=== PATIENT | female | born 1960 | race African-American/Black ===

== ENCOUNTER 2023-02-01 16:23 | Inpatient (IN) | payer SELFPAY ==
[2023-02-01] MEDS ORDERED: Morphine 4 MG/ML VIAL ONE (17:00)
[2023-02-01 17:22] LABS: #Basophils 0.1 thou/uL (0.0-0.2); #Eosinphils 0.2 thou/uL (0.0-0.7); #Monocytes 0.5 thou/uL (0.11-0.59); %Basophils 0.8 % (0.0-1.0); %Eosinophils 3.4 % (0.0-10.0); %Lymphocytes 26.9 % (21.0-51.0); %Monocytes 7.5 % (0.0-10.0); %Neutrophils 61.2 % (42.0-75.0); Hematocrit 41.9 % (36.0-47.0); Hemoglobin 13.8 g/dL (12.0-16.0); Mean Corpuscular HGB CONC 32.9 g/dL (32.0-36.0); Mean Corpuscular Hemoglobin 30.7 pg (27.0-31.0); Mean Corpuscular Volume 93.1 fl (78.0-98.0); Mean Platelet Volume 10.1 fL (7.4-10.4); Platelet Count 287 10x3/uL (130-400); RBC Distribution Width 13.2 % (11.5-14.5); White Blood Cell (WBC) Count 6.5 10x3/uL (4.8-10.8)
[2023-02-01 17:49] LABS: ALT (SGPT) 10 U/L (8-55); AST (SGOT) 9 U/L (5-34); Albumin 3.9 g/dL (3.4-4.8); Alkaline Phosphatase 148 U/L (40-110); Anion Gap 14 mmol/L (10-20); BUN (Urea Nitrogen) 13 mg/dL (9.8-20.1); Bilirubin, Total 0.5 mg/dL (0.2-1.2); Calc. Creatinine Clearance 0 mL/min (70-130); Calcium 9.3 mg/dL (7.8-10.44); Carbon Dioxide 17 mmol/L (23-31); Chloride 110 mmol/L (98-107); Estimated GFR 63; Globulin 3.3 g/dL (2.4-3.5); Glucose 197 mg/dL (80-115); Potassium 3.8 mmol/L (3.5-5.1); Protein, Total 7.2 g/dL (5.8-8.1); Sodium 137 mmol/L (136-145)
[2023-02-01 19:25] LABS: INR-International Normal Ratio 1.1; PTT 26.6 sec (22.9-36.1); Prothrombin Time 14.3 sec (12.0-14.7)
[2023-02-01] MEDS ORDERED: Midazolam HCl 2 mg/2 ml Vial ONE (19:55)
[2023-02-01] MEDS ORDERED: ePHEDrine Sulfate 50 MG/10 ML VIAL ONE (19:55)
[2023-02-01] MEDS ORDERED: Fentanyl 250 MCG/5 ML VIAL ONE (19:55)
[2023-02-01] MEDS ORDERED: PROPOFOL 20 ML ONE (19:55)
[2023-02-01] MEDS ORDERED: PHENYLEPHRINE-NS 100 MCG/ML 10 ML SYRINGE ONE (19:55)
[2023-02-01] MEDS ORDERED: Rocuronium Bromide 10 MG/ML (10ML VIAL) ONE ×2 (19:55→20:41)
[2023-02-01] MEDS ORDERED: Phenylephrine 40 MG/NS 250 ML 250 ML ONE (19:55)
[2023-02-01] MEDS ORDERED: Ondansetron PF 4 MG/2 ML Vial ONE ×2 (19:55→20:41)
[2023-02-01] MEDS ORDERED: Heparin 10,000 UNITS/ 10 ML VIAL ONE (19:55)
[2023-02-01] MEDS ORDERED: Lidocaine 2% PF 100 mg/5 ml Syringe ONE (19:56)
[2023-02-01] MEDS ORDERED: Heparin 25,000 units/D5W 500 ML ONE (20:03)
[2023-02-01] MEDS ORDERED: Protamine Sulfate 50 MG/5 ML VIAL ONE (20:10)
[2023-02-01] MEDS ORDERED: Heparin 5,000 UNITS/ML VIAL ONE (20:10)
[2023-02-01] MEDS ORDERED: EPINEPHrine 1 MG/ML VIAL ONE (20:10)
[2023-02-01] MEDS ORDERED: Bupivacaine PF 0.5% 30 ML VIAL ONE (20:11)
[2023-02-01] MEDS ORDERED: Ondansetron PF 4 MG/2 ML Vial IVP PRN ×2 (20:13→22:19)
[2023-02-01] MEDS ORDERED: Acetaminophen 325 MG TAB PO PRN ×2 (20:13→22:19)
[2023-02-01] MEDS ORDERED: Calcium Carbonate 500 MG ChewTAB PO PRN (20:13)
[2023-02-01] MEDS ORDERED: Ondansetron ODT 4 MG TAB PO PRN (20:13)
[2023-02-01] MEDS ORDERED: Heparin 10,000 UNITS/ 10 ML VIAL SLOW IVP SCH (20:30)
[2023-02-01] MEDS ORDERED: Heparin 25,000 units/D5W 500 ML IVPB SCH (20:30)
[2023-02-01] MEDS ORDERED: PROPOFOL 200 MG/20 ML VIAL ONE (20:41)
[2023-02-01] MEDS ORDERED: Lidocaine 1% PF 5 ML VIAL ONE (20:41)
[2023-02-01] MEDS ORDERED: Dexamethasone 20 MG/5 ML VIAL ONE (20:41)
[2023-02-01 20:45] LABS: Hematocrit 43.9 % (36.0-47.0); Hemoglobin 14.6 g/dL (12.0-16.0); Platelet Count 276 10x3/uL (130-400)
[2023-02-01 21:10] LABS: Cardiac Risk 5.6 (Less than 4.5); Cholesterol 211 mg/dl (< 200 Desired); HDL Cholesterol 38 mg/dL (>60 Neg Risk); LDL Cholesterol, Calculated 137 mg/dL; Triglycerides 181 mg/dL (Less than 150)
[2023-02-01 21:12] LABS: Troponin I Less than 0.010 ng/mL (< 0.028)
[2023-02-01 21:15] LABS: Hemoglobin A1c 6.2 % (4.0-6.0)
[2023-02-01] MEDS ORDERED: SUGAMMADEX SODIUM 200 MG/2 ML VIAL ONE (21:55)
[2023-02-01] MEDS ORDERED: Labetalol HCl 100 MG/20 ML VIAL ONE ×2 (22:03→22:12)
[2023-02-01] MEDS ORDERED: Ipratropium/Albuterol 3 ML NEB NEB PRN (22:19)
[2023-02-01] MEDS ORDERED: traMADol HCl 50 MG TAB PO PRN (22:19)
[2023-02-01] MEDS ORDERED: Promethazine HCl 25 MG/ML VIAL IM PRN (22:19)
[2023-02-01] MEDS ORDERED: fentaNYL 50 mcg/mL 1 mL Vial ONE ×3 (22:21→22:55)
[2023-02-02] MEDS ORDERED: Promethazine HCl 25 MG SUPP PR PRN
[2023-02-02 00:19] VITALS: BMI 29.5
[2023-02-02] MEDS: CEFAZOLIN 2 GM in Sodium Chloride 0.9% 100 ML IVPB SCH ×3 (00:41→15:38)
[2023-02-02] MEDS: Senokot S 8.6-50 MG TAB PO SCH ×3 (00:41→20:21)
[2023-02-02 03:09] LABS: #Monocytes 0.1 thou/uL (0.11-0.59); #Neutrophils 5.6 thou/uL (1.40-6.50); %Basophils 0.3 % (0.0-1.0); %Lymphocytes 15.2 % (21.0-51.0); %Neutrophils 82.2 % (42.0-75.0); Hematocrit 41.3 % (36.0-47.0); Hemoglobin 13.7 g/dL (12.0-16.0); Mean Corpuscular HGB CONC 33.2 g/dL (32.0-36.0); Mean Corpuscular Hemoglobin 30.7 pg (27.0-31.0); Mean Corpuscular Volume 92.6 fl (78.0-98.0); Mean Platelet Volume 9.6 fL (7.4-10.4); Platelet Count 266 10x3/uL (130-400); RBC Distribution Width 13.2 % (11.5-14.5); Red Blood Cell (RBC) Count 4.46 mill/uL (4.20-5.40); White Blood Cell (WBC) Count 6.8 10x3/uL (4.8-10.8)
[2023-02-02 03:44] LABS: PTT 204.4 sec (22.9-36.1)
[2023-02-02 03:59] LABS: Anion Gap 18 mmol/L (10-20); BUN (Urea Nitrogen) 9 mg/dL (9.8-20.1); Calc. Creatinine Clearance 118 mL/min (70-130); Calcium 9.3 mg/dL (7.8-10.44); Carbon Dioxide 18 mmol/L (23-31); Chloride 107 mmol/L (98-107); Estimated GFR 91; Glucose 172 mg/dL (80-115); Potassium 3.7 mmol/L (3.5-5.1); Sodium 139 mmol/L (136-145)
[2023-02-02] MEDS: Morphine 4 MG/ML VIAL SLOW IVP PRN ×2 (04:59→23:22)
[2023-02-02] MEDS ORDERED: Dextrose 50% Abboject 50 ML SYRINGE SLOW IVP PRN (06:31)
[2023-02-02] MEDS ORDERED: Glucagon 1 MG/ML KIT IM PRN (06:31)
[2023-02-02] MEDS ORDERED: HumaLOG 300 UNITS/3 ML VIAL SC PRN ×2 (06:31)
[2023-02-02] MEDS ORDERED: Dextrose 5% in Water 1,000 ML IV PRN (06:31)
[2023-02-02] MEDS ORDERED: Losartan 25 MG TAB PO SCH (09:00)
[2023-02-02] MEDS: Bisacodyl 5 MG TAB PO SCH (10:07)
[2023-02-02] MEDS: dilTIAZem CD 240 MG CAP PO SCH (10:08)
[2023-02-02] MEDS: Ketorolac Tromethamine 30 MG/ML VIAL IVP PRN ×3 (10:11→23:19)
[2023-02-02] MEDS: Losartan 25 MG TAB PO SCH (10:14)
[2023-02-02] MEDS: Aspirin Chewable 81 MG TAB PO SCH (10:14)
[2023-02-02] MEDS: traMADol HCl 50 MG TAB PO PRN ×2 (17:25→23:17)
[2023-02-02] MEDS: hydrALAZINE 20 MG/ML VIAL SLOW IVP PRN (20:21)
[2023-02-02] MEDS: Atorvastatin Calcium 20 MG TAB PO SCH (20:21)
[2023-02-03] MEDS: Ketorolac Tromethamine 30 MG/ML VIAL IVP PRN (05:19)
[2023-02-03] MEDS: hydrALAZINE 20 MG/ML VIAL SLOW IVP PRN ×2 (05:19→22:34)
[2023-02-03] MEDS: traMADol HCl 50 MG TAB PO PRN ×2 (05:20→11:45)
[2023-02-03 05:40] LABS: #Monocytes 0.9 thou/uL (0.11-0.59); #Neutrophils 9.6 thou/uL (1.40-6.50); %Basophils 0.3 % (0.0-1.0); %Eosinophils 0.2 % (0.0-10.0); %Lymphocytes 17.5 % (21.0-51.0); %Monocytes 7.3 % (0.0-10.0); %Neutrophils 74.4 % (42.0-75.0); Hematocrit 43.2 % (36.0-47.0); Hemoglobin 14.1 g/dL (12.0-16.0); Mean Corpuscular HGB CONC 32.6 g/dL (32.0-36.0); Mean Corpuscular Hemoglobin 30.2 pg (27.0-31.0); Mean Corpuscular Volume 92.5 fl (78.0-98.0); Mean Platelet Volume 9.9 fL (7.4-10.4); Platelet Count 288 10x3/uL (130-400); RBC Distribution Width 13.5 % (11.5-14.5); Red Blood Cell (RBC) Count 4.67 mill/uL (4.20-5.40); White Blood Cell (WBC) Count 12.9 10x3/uL (4.8-10.8)
[2023-02-03 06:05] LABS: Anion Gap 15 mmol/L (10-20); BUN (Urea Nitrogen) 17 mg/dL (9.8-20.1); Calc. Creatinine Clearance 115 mL/min (70-130); Calcium 9.6 mg/dL (7.8-10.44); Carbon Dioxide 24 mmol/L (23-31); Chloride 105 mmol/L (98-107); Estimated GFR 88; Glucose 119 mg/dL (80-115); Sodium 140 mmol/L (136-145)
[2023-02-03] MEDS: dilTIAZem CD 240 MG CAP PO SCH (09:04)
[2023-02-03] MEDS: Aspirin Chewable 81 MG TAB PO SCH (09:05)
[2023-02-03] MEDS: Senokot S 8.6-50 MG TAB PO SCH ×2 (09:05→20:50)
[2023-02-03] MEDS: Bisacodyl 5 MG TAB PO SCH (09:05)
[2023-02-03] MEDS: Apixaban 5 MG TAB PO SCH ×2 (09:06→20:50)
[2023-02-03] MEDS: Losartan 25 MG TAB PO SCH (09:06)
[2023-02-03] MEDS: Atorvastatin Calcium 20 MG TAB PO SCH (20:50)
[2023-02-03 20:59] LABS: Hematocrit 45.1 % (36.0-47.0); Hemoglobin 14.4 g/dL (12.0-16.0); Platelet Count 317 10x3/uL (130-400)
[2023-02-04] MEDS: hydrALAZINE 20 MG/ML VIAL SLOW IVP PRN (04:32)
[2023-02-04 05:25] LABS: #Basophils 0.1 thou/uL (0.0-0.2); #Eosinphils 0.1 thou/uL (0.0-0.7); #Monocytes 0.7 thou/uL (0.11-0.59); #Neutrophils 4.8 thou/uL (1.40-6.50); %Basophils 0.6 % (0.0-1.0); %Eosinophils 1.7 % (0.0-10.0); %Monocytes 8.6 % (0.0-10.0); Hematocrit 43.9 % (36.0-47.0); Hemoglobin 14.2 g/dL (12.0-16.0); Mean Corpuscular HGB CONC 32.3 g/dL (32.0-36.0); Mean Corpuscular Hemoglobin 30.1 pg (27.0-31.0); Platelet Count 305 10x3/uL (130-400); RBC Distribution Width 13.5 % (11.5-14.5); Red Blood Cell (RBC) Count 4.72 mill/uL (4.20-5.40); White Blood Cell (WBC) Count 8.3 10x3/uL (4.8-10.8)
[2023-02-04 05:55] LABS: Anion Gap 18 mmol/L (10-20); BUN (Urea Nitrogen) 19 mg/dL (9.8-20.1); Calc. Creatinine Clearance 120 mL/min (70-130); Calcium 9.5 mg/dL (7.8-10.44); Carbon Dioxide 18 mmol/L (23-31); Chloride 104 mmol/L (98-107); Estimated GFR 92; Glucose 119 mg/dL (80-115); Potassium 3.8 mmol/L (3.5-5.1); Sodium 136 mmol/L (136-145)
[2023-02-04] MEDS ORDERED: Atorvastatin Calcium 20 MG TAB PO SCH (07:44)
[2023-02-04] MEDS ORDERED: Losartan 25 MG TAB PO SCH (09:00)
[2023-02-04] MEDS: traMADol HCl 50 MG TAB PO PRN (09:27)
[2023-02-04] MEDS: dilTIAZem CD 240 MG CAP PO SCH (09:29)
[2023-02-04] MEDS: Senokot S 8.6-50 MG TAB PO SCH (09:30)
[2023-02-04] MEDS: Aspirin Chewable 81 MG TAB PO SCH (09:30)
[2023-02-04] MEDS: Bisacodyl 5 MG TAB PO SCH (09:30)
[2023-02-04] MEDS: Apixaban 5 MG TAB PO SCH (09:30)
[2023-02-04 15:51] VITALS: BP 128/90; TEMP 97.8
[2023-02-04] MEDS ORDERED: Atorvastatin Calcium 40 MG TAB PO SCH (21:00)
[2023-02-05] MEDS ORDERED: FLU VACC QS2023-24(6MOS UP)/PF 60 MCG/0.5 ML SYRINGE IM ONE (09:00)
== END 2023-02-04 16:15 | disposition home or self-care (01) | DRG 253 ==
LOC: ERS 16:23 → SDC/OP 20:28 → SJJU 02-02 00:05
PROVIDERS: ADMIT Student in an Organized Health Care Education/Training Program; ATTEND Student in an Organized Health Care Education/Training Program
PROC: 04CL0ZZ Extirpation of Matter from Left Femoral Artery, Open Approach (ICD-10-PCS; principal; 2023-02-02)
PROC: 3E033XZ Introduction of Vasopressor into Peripheral Vein, Percutaneous Approach (ICD-10-PCS; 2023-02-02)
DX: I70.222 Atherosclerosis of native arteries of extremities with rest pain, left leg (principal); I74.3 Embolism and thrombosis of arteries of the lower extremities; I10 Essential (primary) hypertension; I48.91 Unspecified atrial fibrillation; E78.5 Hyperlipidemia, unspecified; K59.00 Constipation, unspecified; F17.210 Nicotine dependence, cigarettes, uncomplicated; E78.2 Mixed hyperlipidemia; R73.03 Prediabetes; Z88.0 Allergy status to penicillin; Z98.51 Tubal ligation status; Z90.89 Acquired absence of other organs; Z82.49 Family history of ischemic heart disease and other diseases of the circulatory system
CPT/HCPCS: 36415; 36416; 75635; 80048; 80053; 80061; 83036; 83605; 84484; 85025; 85610; 85730; 86850; 86900; 86901; 93005; 93923; J0171; J0360; J1100; J1644; J1815; J1885; J2001; J2250; J2270; J2405; J2704; J2720; J3010; J3490; Q0162; S0020

== ENCOUNTER 2023-03-25 19:09 | Inpatient (IN) | payer SELFPAY ==
[2023-03-25] MEDS ORDERED: dilTIAZem 125 MG/25 ML SDV ONE (19:42)
[2023-03-25 19:53] LABS: Hemoglobin 12.6 g/dL (12.0-16.0); Manual Diff?? YES; Mean Corpuscular HGB CONC 32.3 g/dL (32.0-36.0); Mean Corpuscular Hemoglobin 30.5 pg (27.0-31.0); Mean Corpuscular Volume 94.4 fl (78.0-98.0); Mean Platelet Volume 10.9 fL (7.4-10.4); Platelet Count 244 10x3/uL (130-400); Red Blood Cell (RBC) Count 4.13 mill/uL (4.20-5.40); White Blood Cell (WBC) Count 5.2 10x3/uL (4.8-10.8)
[2023-03-25 19:57] LABS: Delete Auto Diff?? YES
[2023-03-25] MEDS ORDERED: Metoprolol Tartrate 5 MG (5 mL) VIAL ONE ×2 (20:11→22:43)
[2023-03-25 20:16] LABS: ALT (SGPT) 12 U/L (8-55); AST (SGOT) 14 U/L (5-34); Alkaline Phosphatase 117 U/L (40-110); Anion Gap 14 mmol/L (10-20); BUN (Urea Nitrogen) 11 mg/dL (9.8-20.1); Bilirubin, Total 0.9 mg/dL (0.2-1.2); Calc. Creatinine Clearance 0 mL/min (70-130); Calcium 8.8 mg/dL (7.8-10.44); Carbon Dioxide 19 mmol/L (23-31); Chloride 110 mmol/L (98-107); Estimated GFR 80; Globulin 3.2 g/dL (2.4-3.5); Glucose 114 mg/dL (80-115); Potassium 3.6 mmol/L (3.5-5.1); Protein, Total 7.2 g/dL (5.8-8.1); Sodium 139 mmol/L (136-145)
[2023-03-25 20:29] LABS: Troponin I 0.023 ng/mL (< 0.028)
[2023-03-25 20:35] LABS: CellaVision Operator ID LAB.MJL; Eosinophils 4 % (0-10); Large Platelets 3.9 % (0-5); Lymphocytes 44 % (21-51); Monocytes 9 % (0-10); Neutrophil 41 % (42-75); Ovalocytes SLIGHT = 2-5 cells HPF (0-1); Platelet Adequacy Comment Platelets Normal; Polychromasia SLIGHT = 2-3 cells HPF (0-2); Total Cell Count 102
[2023-03-25] MEDS ORDERED: Furosemide 40 MG (4 mL) VIAL ONE (20:40)
[2023-03-25] MEDS ORDERED: Potassium Chloride 20 MEQ TAB ONE (22:06)
[2023-03-25 22:18] LABS: Magnesium 1.7 mg/dL (1.6-2.6)
[2023-03-25 23:37] LABS: Troponin I Less than 0.010 ng/mL (< 0.028)
[2023-03-26 03:01] LABS: Troponin I Less than 0.010 ng/mL (< 0.028)
[2023-03-26] MEDS ORDERED: Ondansetron PF 4 MG/2 ML Vial IVP PRN (03:53)
[2023-03-26] MEDS ORDERED: Acetaminophen 325 MG TAB PO PRN (03:53)
[2023-03-26] MEDS ORDERED: dilTIAZem 125 MG in Sodium Chloride 0.9% 100 ML IVPB SCH (04:00)
[2023-03-26 05:18] LABS: Hematocrit 38.4 % (36.0-47.0); Hemoglobin 12.6 g/dL (12.0-16.0); Manual Diff?? YES; Mean Corpuscular HGB CONC 32.8 g/dL (32.0-36.0); Mean Corpuscular Hemoglobin 30.9 pg (27.0-31.0); Mean Corpuscular Volume 94.1 fl (78.0-98.0); Mean Platelet Volume 10.8 fL (7.4-10.4); Platelet Count 225 10x3/uL (130-400); RBC Distribution Width 14.2 % (11.5-14.5); Red Blood Cell (RBC) Count 4.08 mill/uL (4.20-5.40); White Blood Cell (WBC) Count 5.2 10x3/uL (4.8-10.8)
[2023-03-26] MEDS: Furosemide 20 MG (2 mL) VIAL SLOW IVP SCH ×2 (05:40→17:33)
[2023-03-26 05:46] LABS: Anion Gap 14 mmol/L (10-20); BUN (Urea Nitrogen) 9 mg/dL (9.8-20.1); Calc. Creatinine Clearance 112 mL/min (70-130); Calcium 8.8 mg/dL (7.8-10.44); Carbon Dioxide 21 mmol/L (23-31); Chloride 108 mmol/L (98-107); Estimated GFR 90; Glucose 114 mg/dL (80-115); Magnesium 1.8 mg/dL (1.6-2.6); Potassium 3.5 mmol/L (3.5-5.1); Sodium 139 mmol/L (136-145)
[2023-03-26 06:06] LABS: Delete Auto Diff?? YES
[2023-03-26 07:08] LABS: CellaVision Operator ID LAB.NR; Eosinophils 8 % (0-10); Hypochromia SLIGHT = 6-15 cells HPF (0-5); Large Platelets 10.7 % (0-5); Lymphocytes 42 % (21-51); Macrocytosis SLIGHT = 6-15 cells HPF (0-5); Monocytes 6 % (0-10); Neutrophil 44 % (42-75); Platelet Adequacy Comment Platelets Normal; Polychromasia SLIGHT = 2-3 cells HPF (0-2); Smudge Cells 6.8 %; Total Cell Count 103
[2023-03-26] MEDS: Apixaban 5 MG TAB PO SCH ×2 (10:01→20:24)
[2023-03-26] MEDS: dilTIAZem CD 240 MG CAP PO SCH (10:01)
[2023-03-26] MEDS: Senokot S 8.6-50 MG TAB PO SCH ×2 (10:01→20:25)
[2023-03-26] MEDS: Losartan 25 MG TAB PO SCH (10:02)
[2023-03-26] MEDS: Atorvastatin Calcium 40 MG TAB PO SCH (20:24)
[2023-03-27] MEDS: Furosemide 20 MG (2 mL) VIAL SLOW IVP SCH ×2 (04:57→13:52)
[2023-03-27 06:39] LABS: Hematocrit 44.5 % (36.0-47.0); Hemoglobin 14.3 g/dL (12.0-16.0); Manual Diff?? YES; Mean Corpuscular HGB CONC 32.1 g/dL (32.0-36.0); Mean Corpuscular Hemoglobin 30.2 pg (27.0-31.0); Mean Corpuscular Volume 94.1 fl (78.0-98.0); Mean Platelet Volume 11.2 fL (7.4-10.4); Platelet Count 264 10x3/uL (130-400); Red Blood Cell (RBC) Count 4.73 mill/uL (4.20-5.40); White Blood Cell (WBC) Count 5.3 10x3/uL (4.8-10.8)
[2023-03-27 06:45] LABS: Delete Auto Diff?? YES
[2023-03-27 06:51] LABS: Anion Gap 16 mmol/L (10-20); BUN (Urea Nitrogen) 14 mg/dL (9.8-20.1); Calc. Creatinine Clearance 91 mL/min (70-130); Calcium 9.4 mg/dL (7.8-10.44); Carbon Dioxide 22 mmol/L (23-31); Chloride 106 mmol/L (98-107); Estimated GFR 72; Glucose 94 mg/dL (80-115); Potassium 3.4 mmol/L (3.5-5.1); Sodium 141 mmol/L (136-145)
[2023-03-27 07:18] LABS: Anisocytosis SLIGHT = 6-15 cells HPF (0-5); Burr Cells SLIGHT = 2-5 cells HPF (0-1); CellaVision Operator ID LAB.NR; Eosinophils 6 % (0-10); Lymphocytes 49 % (21-51); Macrocytosis SLIGHT = 6-15 cells HPF (0-5); Monocytes 4 % (0-10); Neutrophil 30 % (42-75); Platelet Adequacy Comment Platelets Normal; Polychromasia SLIGHT = 2-3 cells HPF (0-2); Reactive Lymphocytes 7 % (0-10); Total Cell Count 101
[2023-03-27] MEDS: Apixaban 5 MG TAB PO SCH ×2 (08:19→19:46)
[2023-03-27] MEDS: Senokot S 8.6-50 MG TAB PO SCH ×2 (08:19→19:46)
[2023-03-27] MEDS: dilTIAZem CD 240 MG CAP PO SCH (08:19)
[2023-03-27] MEDS: Losartan 25 MG TAB PO SCH (08:19)
[2023-03-27 17:44] LABS: #Basophils 0.1 thou/uL (0.0-0.2); #Eosinphils 0.3 thou/uL (0.0-0.7); #Monocytes 0.4 thou/uL (0.11-0.59); #Neutrophils 2.2 thou/uL (1.40-6.50); %Basophils 1.2 % (0.0-1.0); %Eosinophils 5.7 % (0.0-10.0); %Lymphocytes 40.2 % (21.0-51.0); %Monocytes 8.5 % (0.0-10.0); %Neutrophils 44.2 % (42.0-75.0); Hematocrit 43.6 % (36.0-47.0); Mean Corpuscular HGB CONC 32.1 g/dL (32.0-36.0); Mean Corpuscular Hemoglobin 30.4 pg (27.0-31.0); Mean Corpuscular Volume 94.6 fl (78.0-98.0); Mean Platelet Volume 10.7 fL (7.4-10.4); Platelet Count 250 10x3/uL (130-400); Red Blood Cell (RBC) Count 4.61 mill/uL (4.20-5.40); White Blood Cell (WBC) Count 5.1 10x3/uL (4.8-10.8)
[2023-03-27] MEDS: traMADol HCl 50 MG TAB PO PRN (18:02)
[2023-03-27 18:12] LABS: ALT (SGPT) 14 U/L (8-55); AST (SGOT) 16 U/L (5-34); Albumin 4.1 g/dL (3.4-4.8); Alkaline Phosphatase 124 U/L (40-110); Anion Gap 18 mmol/L (10-20); BUN (Urea Nitrogen) 20 mg/dL (9.8-20.1); Bilirubin, Total 0.8 mg/dL (0.2-1.2); CK (CPK) 36 U/L (29-168); Calc. Creatinine Clearance 75 mL/min (70-130); Calcium 9.5 mg/dL (7.8-10.44); Carbon Dioxide 19 mmol/L (23-31); Chloride 103 mmol/L (98-107); Estimated GFR 57; Globulin 3.5 g/dL (2.4-3.5); Glucose 105 mg/dL (80-115); Magnesium 1.8 mg/dL (1.6-2.6); Potassium 3.9 mmol/L (3.5-5.1); Protein, Total 7.6 g/dL (5.8-8.1); Sodium 136 mmol/L (136-145)
[2023-03-27] MEDS: Atorvastatin Calcium 40 MG TAB PO SCH (19:46)
[2023-03-28 05:35] LABS: Hematocrit 42.9 % (36.0-47.0); Hemoglobin 13.6 g/dL (12.0-16.0); Manual Diff?? YES; Mean Corpuscular HGB CONC 31.7 g/dL (32.0-36.0); Mean Corpuscular Hemoglobin 29.6 pg (27.0-31.0); Mean Corpuscular Volume 93.5 fl (78.0-98.0); Mean Platelet Volume 11.1 fL (7.4-10.4); Platelet Count 249 10x3/uL (130-400); RBC Distribution Width 13.9 % (11.5-14.5); Red Blood Cell (RBC) Count 4.59 mill/uL (4.20-5.40); White Blood Cell (WBC) Count 4.2 10x3/uL (4.8-10.8)
[2023-03-28] MEDS: Furosemide 20 MG (2 mL) VIAL SLOW IVP SCH (05:38)
[2023-03-28 05:39] LABS: Delete Auto Diff?? YES
[2023-03-28 05:59] LABS: Anion Gap 17 mmol/L (10-20); BUN (Urea Nitrogen) 20 mg/dL (9.8-20.1); Calc. Creatinine Clearance 98 mL/min (70-130); Calcium 9.2 mg/dL (7.8-10.44); Carbon Dioxide 21 mmol/L (23-31); Chloride 106 mmol/L (98-107); Estimated GFR 79; Glucose 128 mg/dL (80-115); Magnesium 1.9 mg/dL (1.6-2.6); Potassium 3.5 mmol/L (3.5-5.1); Sodium 140 mmol/L (136-145)
[2023-03-28 06:04] LABS: CellaVision Operator ID LAB.CLH1; Eosinophils 8 % (0-10); Lymphocytes 39 % (21-51); Monocytes 4 % (0-10); Neutrophil 42 % (42-75); Nucleated RBC (Manual Ct) 1 % (0); Platelet Adequacy Comment Platelets Normal; Reactive Lymphocytes 3 % (0-10); Total Cell Count 100
[2023-03-28] MEDS ORDERED: Potassium Chloride 20 MEQ TAB PO SCH (08:00)
[2023-03-28] MEDS ORDERED: Magnesium 2 GM/50 ML(in water) 2 GM in Premix 1 BAG IVPB SCH (08:00)
[2023-03-28] MEDS: Apixaban 5 MG TAB PO SCH ×2 (08:14→21:20)
[2023-03-28] MEDS: dilTIAZem CD 240 MG CAP PO SCH (08:14)
[2023-03-28] MEDS: Senokot S 8.6-50 MG TAB PO SCH ×2 (08:15→21:20)
[2023-03-28] MEDS: Losartan 25 MG TAB PO SCH (08:15)
[2023-03-28] MEDS: Potassium Chloride 20 MEQ TAB PO SCH ×2 (11:08→16:47)
[2023-03-28] MEDS: Atorvastatin Calcium 40 MG TAB PO SCH (21:19)
[2023-03-28] MEDS: traMADol HCl 50 MG TAB PO PRN (21:19)
[2023-03-29 06:16] LABS: #Basophils 0.1 thou/uL (0.0-0.2); #Eosinphils 0.4 thou/uL (0.0-0.7); #Monocytes 0.6 thou/uL (0.11-0.59); #Neutrophils 1.8 thou/uL (1.40-6.50); %Basophils 1.2 % (0.0-1.0); %Eosinophils 6.4 % (0.0-10.0); %Lymphocytes 50.9 % (21.0-51.0); %Monocytes 10.8 % (0.0-10.0); %Neutrophils 30.5 % (42.0-75.0); Hematocrit 43.9 % (36.0-47.0); Hemoglobin 13.8 g/dL (12.0-16.0); Mean Corpuscular HGB CONC 31.4 g/dL (32.0-36.0); Mean Corpuscular Hemoglobin 30.1 pg (27.0-31.0); Mean Corpuscular Volume 95.6 fl (78.0-98.0); Mean Platelet Volume 10.7 fL (7.4-10.4); Platelet Count 262 10x3/uL (130-400); RBC Distribution Width 14.1 % (11.5-14.5); Red Blood Cell (RBC) Count 4.59 mill/uL (4.20-5.40)
[2023-03-29 06:53] LABS: Anion Gap 13 mmol/L (10-20); BUN (Urea Nitrogen) 28 mg/dL (9.8-20.1); Calc. Creatinine Clearance 76 mL/min (70-130); Calcium 9.4 mg/dL (7.8-10.44); Carbon Dioxide 22 mmol/L (23-31); Chloride 105 mmol/L (98-107); Estimated GFR 59; Glucose 102 mg/dL (80-115); Magnesium 4.8 mg/dL (1.6-2.6); Potassium 4.4 mmol/L (3.5-5.1); Sodium 136 mmol/L (136-145)
[2023-03-29] MEDS ORDERED: Potassium Chloride 20 MEQ TAB PO SCH (08:00)
[2023-03-29] MEDS ORDERED: FLU VACC QS2023-24(6MOS UP)/PF 60 MCG/0.5 ML SYRINGE IM ONE (09:00)
[2023-03-29] MEDS: Apixaban 5 MG TAB PO SCH ×2 (09:37→21:09)
[2023-03-29] MEDS: Senokot S 8.6-50 MG TAB PO SCH ×2 (09:37→21:10)
[2023-03-29] MEDS: dilTIAZem CD 240 MG CAP PO SCH (09:38)
[2023-03-29] MEDS: Losartan 25 MG TAB PO SCH (09:38)
[2023-03-29] MEDS: Furosemide 40 MG TAB PO SCH (09:39)
[2023-03-29] MEDS: Atorvastatin Calcium 40 MG TAB PO SCH (21:10)
[2023-03-29] MEDS: Famotidine 20 MG TAB PO SCH (21:10)
[2023-03-30 06:35] LABS: #Basophils 0.1 thou/uL (0.0-0.2); #Eosinphils 0.3 thou/uL (0.0-0.7); #Monocytes 0.4 thou/uL (0.11-0.59); %Basophils 1.7 % (0.0-1.0); %Eosinophils 7.9 % (0.0-10.0); %Lymphocytes 55.6 % (21.0-51.0); %Monocytes 10.4 % (0.0-10.0); %Neutrophils 24.2 % (42.0-75.0); Hematocrit 44.9 % (36.0-47.0); Hemoglobin 14.5 g/dL (12.0-16.0); Mean Corpuscular HGB CONC 32.3 g/dL (32.0-36.0); Mean Corpuscular Hemoglobin 30.3 pg (27.0-31.0); Mean Corpuscular Volume 93.9 fl (78.0-98.0); Mean Platelet Volume 10.5 fL (7.4-10.4); Platelet Count 266 10x3/uL (130-400); RBC Distribution Width 13.5 % (11.5-14.5); Red Blood Cell (RBC) Count 4.78 mill/uL (4.20-5.40)
[2023-03-30 07:06] LABS: Anion Gap 12 mmol/L (10-20); BUN (Urea Nitrogen) 24 mg/dL (9.8-20.1); Calc. Creatinine Clearance 103 mL/min (70-130); Calcium 9.5 mg/dL (7.8-10.44); Carbon Dioxide 21 mmol/L (23-31); Chloride 105 mmol/L (98-107); Estimated GFR 86; Glucose 97 mg/dL (80-115); Sodium 134 mmol/L (136-145)
[2023-03-30] MEDS: Furosemide 40 MG TAB PO SCH (08:44)
[2023-03-30] MEDS: dilTIAZem CD 240 MG CAP PO SCH (08:45)
[2023-03-30] MEDS: Apixaban 5 MG TAB PO SCH ×2 (08:45→21:04)
[2023-03-30] MEDS: Famotidine 20 MG TAB PO SCH ×2 (08:45→21:04)
[2023-03-30] MEDS: Losartan 25 MG TAB PO SCH (08:45)
[2023-03-30] MEDS: Senokot S 8.6-50 MG TAB PO SCH ×2 (08:46→21:04)
[2023-03-30] MEDS: Atorvastatin Calcium 40 MG TAB PO SCH (21:04)
[2023-03-30] MEDS: traMADol HCl 50 MG TAB PO PRN (21:12)
[2023-03-31 04:42] LABS: Hematocrit 44.8 % (36.0-47.0); Hemoglobin 14.7 g/dL (12.0-16.0); Manual Diff?? YES; Mean Corpuscular HGB CONC 32.8 g/dL (32.0-36.0); Mean Corpuscular Hemoglobin 31.1 pg (27.0-31.0); Mean Corpuscular Volume 94.7 fl (78.0-98.0); Mean Platelet Volume 10.8 fL (7.4-10.4); Platelet Count 292 10x3/uL (130-400); RBC Distribution Width 13.3 % (11.5-14.5); Red Blood Cell (RBC) Count 4.73 mill/uL (4.20-5.40); White Blood Cell (WBC) Count 4.8 10x3/uL (4.8-10.8)
[2023-03-31 05:00] LABS: Delete Auto Diff?? YES
[2023-03-31 05:07] VITALS: BMI 27.5
[2023-03-31 05:07] LABS: Anion Gap 15 mmol/L (10-20); BUN (Urea Nitrogen) 31 mg/dL (9.8-20.1); Calc. Creatinine Clearance 85 mL/min (70-130); Calcium 9.2 mg/dL (7.8-10.44); Carbon Dioxide 18 mmol/L (23-31); Chloride 107 mmol/L (98-107); Estimated GFR 67; Glucose 93 mg/dL (80-115); Sodium 136 mmol/L (136-145)
[2023-03-31 05:24] LABS: CellaVision Operator ID LAB.CLH1; Eosinophils 3 % (0-10); Hypochromia SLIGHT = 6-15 cells HPF (0-5); Large Platelets 10.1 % (0-5); Lymphocytes 42 % (21-51); Monocytes 19 % (0-10); Neutrophil 31 % (42-75); Platelet Adequacy Comment Platelets Normal; Reactive Lymphocytes 3 % (0-10); Total Cell Count 99
[2023-03-31] MEDS ORDERED: Regadenoson 0.4 MG/5 ML SYRINGE ONE (10:07)
[2023-03-31] MEDS: Apixaban 5 MG TAB PO SCH (12:15)
[2023-03-31] MEDS: Furosemide 40 MG TAB PO SCH (12:15)
[2023-03-31] MEDS: Losartan 25 MG TAB PO SCH (12:15)
[2023-03-31] MEDS: Senokot S 8.6-50 MG TAB PO SCH (12:16)
[2023-03-31] MEDS: Famotidine 20 MG TAB PO SCH (12:16)
[2023-03-31] MEDS: dilTIAZem CD 240 MG CAP PO SCH (12:16)
[2023-03-31 15:47] VITALS: BP 114/75; TEMP 97.7
== END 2023-03-31 18:43 | disposition home or self-care (01) | DRG 291 ==
LOC: ERS 19:09 → 2NO 22:05
PROVIDERS: ADMIT Internal Medicine; ATTEND Internal Medicine
DX: I13.0 Hypertensive heart and chronic kidney disease with heart failure and stage 1 through stage 4 chronic kidney disease, or unspecified chronic kidney disease (principal); I50.33 Acute on chronic diastolic (congestive) heart failure; J96.01 Acute respiratory failure with hypoxia; I48.92 Unspecified atrial flutter; I47.29 Other ventricular tachycardia; E87.20 Acidosis, unspecified; E87.1 Hypo-osmolality and hyponatremia; I48.91 Unspecified atrial fibrillation; N18.2 Chronic kidney disease, stage 2 (mild); E87.6 Hypokalemia; E83.42 Hypomagnesemia; E78.5 Hyperlipidemia, unspecified; F17.210 Nicotine dependence, cigarettes, uncomplicated; Z86.73 Personal history of transient ischemic attack (TIA), and cerebral infarction without residual deficits; Z88.0 Allergy status to penicillin; Z98.51 Tubal ligation status; Z90.89 Acquired absence of other organs; Z98.890 Other specified postprocedural states; Z82.49 Family history of ischemic heart disease and other diseases of the circulatory system; Z91.148 Patient's other noncompliance with medication regimen for other reason; Z79.899 Other long term (current) drug therapy
CPT/HCPCS: 36415; 71045; 78452; 80048; 80053; 82550; 83735; 83880; 84100; 84484; 85025; 93005; 93017; 93306; 93798; 96365; 96366; 96375; 96376; 97139; A9502; J1940; J2785; J3475; J3490